=== PATIENT | female | born 1985 | race Caucasian/White ===

== ENCOUNTER → 2016-04-28 | Outpatient (CLI) | payer OTHER ==
[2016-04-28 12:01] VITALS: BP 115/76
== END ==
LOC: MHUC 11:01
PROVIDERS: ATTEND Physician Assistant
DX: J00 Acute nasopharyngitis [common cold] (principal)
CPT/HCPCS: 99213

== ENCOUNTER → 2016-06-13 | Outpatient (CLI) | payer OTHER ==
[2016-06-13 19:36] VITALS: BP 116/76
== END ==
LOC: MHUC 19:05
PROVIDERS: ATTEND Physician Assistant
DX: L03.116 Cellulitis of left lower limb (principal)
CPT/HCPCS: 99213